=== PATIENT | female | born 1970 | race African-American/Black ===

== ENCOUNTER 2017-01-10 17:46 | Emergency (ER) | payer BC ==
[~2017-01-10] VITALS: Ht 172.7 cm; Wt 85.3 kg
[~2017-01-10 17:46] MED LIST: ALLERCLEAR10 MG PO; ATENOLOL25 MG PO; CARDIZEM30 MG PO; CYCLOBENZAPRINE5 M3 PO; NORCO 10-325 T1 EACH PO; PREDNISONE20 M1 PO; PREMARIN0.3 M1 PO; PROZAC10 MG PO; XANAX1 MG PO
[2017-01-10] MEDS ORDERED: AUGMENTIN 875-875 MG PO ×2 (18:26)
[2017-01-10] MEDS ORDERED: PREDNISONE10 MG PO (18:32)
== END 2017-01-10 18:33 | disposition home or self-care (01) ==
LOC: ED 17:46
DX: J01.10 Acute frontal sinusitis, unspecified (principal); R03.0 Elevated blood-pressure reading, without diagnosis of hypertension; Z90.49 Acquired absence of other specified parts of digestive tract; Z79.899 Other long term (current) drug therapy